=== PATIENT | male | born 1960 | race African-American/Black ===

== ENCOUNTER 2020-08-31 10:19 | Observation (INO) | payer MEDICARE, MEDICAID, OTHER ==
[~2020-08-31] VITALS: Ht 157.5 cm; Wt 48.1 kg
[2020-08-31] MEDS ORDERED: DICLOFENAC SODI75 MG PO (10:53)
[2020-08-31] MEDS ORDERED: TOPROL XL25 M1 PO (10:54)
[2020-08-31] MEDS ORDERED: NORVASC10 M1 PO (10:54)
[2020-08-31] MEDS ORDERED: LAMOTRIGINE150 MG PO (10:55)
[2020-08-31 11:02] LABS: URINE BILIRUBIN - DIPSTICK NEGATIVE (NEGATIVE); URINE BLOOD DIPSTICK TRACE-INTACT (NEGATIVE); URINE COLOR YELLOW; URINE GLUCOSE - DIPSTICK NEGATIVE (NEGATIVE); URINE KETONE NEGATIVE (NEGATIVE); URINE LEUK ESTERASE NEGATIVE (NEGATIVE); URINE PROTEIN - DIPSTICK NEGATIVE (NEG-TRACE); URINE UROBILINOGEN - DIPSTICK 0.2 E.U./dL (0.2)
[2020-08-31 11:17] LABS: URINE NITRITE - DIPSTICK POSITIVE (Negative)
[2020-08-31 11:29] LABS: URINE BACTERIA MODERATE hpf; URINE RBC 0-2 RBC/hpf (0-5); URINE SQUAMOUS EPITHELIAL CELL FEW EPI/hpf (0-FEW)
[2020-08-31 12:13] LABS: HEMATOCRIT 42.8 % (39.0-50.0); MEAN CELL VOLUME 90.7 fL CALC (80.0-100.0); MEAN CORPUSCULAR HGB 29.7 pG CALC (26.0-32.0); MEAN CORPUSCULAR HGB CONC 32.7 g/dL CAL (32.0-36.0); NEUT# 1.26 thou/uL (1.82-7.42); RED BLOOD COUNT 4.72 mill/uL (4.70-6.10); RED CELL DISTRI WIDTH 11.9 % (11.5-15.5)
[2020-08-31 12:33] LABS: ALBUMIN 4.8 g/dL (3.2-5.0); ALKALINE PHOSPHATASE 91 u/l (38-126); ANION GAP 16 (6-22 (CALC)); BILIRUBIN, TOTAL 0.6 mg/dL (0.0-1.4); BUN 12 mg/dL (9-20); BUN/CREATININE RATIO 13 (12-20 (CALC)); CARBON DIOXIDE 28 mmol/l (22-30); CHLORIDE 104 mmol/l (95-108); CREATININE 0.9 mg/dL (0.7-1.3); GFR > 60 ML/MIN (>=60 (CALC)); GFR FOR AFR.AMER. > 60 ML/MIN (>=60 (CALC)); LIPASE 58 u/l (23-300); MAGNESIUM 2.1 mg/dL (1.6-2.3); POTASSIUM 4.2 mmol/l (3.5-5.1); SGOT/AST 22 u/l (17-59); SODIUM 144 mmol/l (137-146); TOTAL PROTEIN 9.2 g/dL (6.3-8.2)
[2020-09-01 04:33] LABS: HEMATOCRIT 42.8 % (39.0-50.0); HEMOGLOBIN 13.8 g/dl (14.0-18.0); MEAN CELL VOLUME 90.7 fL CALC (80.0-100.0); MEAN CORPUSCULAR HGB 29.2 pG CALC (26.0-32.0); MEAN CORPUSCULAR HGB CONC 32.2 g/dL CAL (32.0-36.0); NEUT# 1.52 thou/uL (1.82-7.42); RED BLOOD COUNT 4.72 mill/uL (4.70-6.10); RED CELL DISTRI WIDTH 11.9 % (11.5-15.5)
[2020-09-01 04:43] LABS: ALBUMIN 4.5 g/dL (3.2-5.0); ALKALINE PHOSPHATASE 77 u/l (38-126); ANION GAP 12 (6-22 (CALC)); BILIRUBIN, TOTAL 0.6 mg/dL (0.0-1.4); BUN 15 mg/dL (9-20); BUN/CREATININE RATIO 14 (12-20 (CALC)); C-REACTIVE PROTEIN < 0.5 mg/dL (0-0.9); CARBON DIOXIDE 30 mmol/l (22-30); CHLORIDE 105 mmol/l (95-108); GFR > 60 ML/MIN (>=60 (CALC)); GFR FOR AFR.AMER. > 60 ML/MIN (>=60 (CALC)); POTASSIUM 4.6 mmol/l (3.5-5.1); SGOT/AST 24 u/l (17-59); SODIUM 142 mmol/l (137-146); TOTAL PROTEIN 8.4 g/dL (6.3-8.2)
[2020-09-01 07:39] VITALS: BP 168/83
[2020-09-01 12:15] VITALS: BP 173/96
[2020-09-01 12:40] VITALS: BP 160/92
[2020-09-01 14:58] VITALS: BP 156/92
[2020-09-01 19:35] VITALS: BP 176/91
[2020-09-02 00:10] VITALS: BP 158/89
[2020-09-02 04:05] VITALS: BP 173/90
[2020-09-02 08:00] VITALS: BP 166/94
[2020-09-02 10:15] VITALS: BP 108/55
[2020-09-02 14:35] VITALS: BP 140/74
[2020-09-02 20:00] VITALS: BP 144/86
[2020-09-03] VITALS: BP 110/65
[2020-09-03 04:00] VITALS: BP 145/87
[2020-09-03 04:40] LABS: HEMATOCRIT 42.8 % (39.0-50.0); MEAN CELL VOLUME 89.7 fL CALC (80.0-100.0); MEAN CORPUSCULAR HGB 29.4 pG CALC (26.0-32.0); MEAN CORPUSCULAR HGB CONC 32.7 g/dL CAL (32.0-36.0); RED BLOOD COUNT 4.77 mill/uL (4.70-6.10); RED CELL DISTRI WIDTH 12.1 % (11.5-15.5)
[2020-09-03 05:02] LABS: ALBUMIN 4.6 g/dL (3.2-5.0); ALKALINE PHOSPHATASE 97 u/l (38-126); ANION GAP 15 (6-22 (CALC)); BILIRUBIN, TOTAL 0.5 mg/dL (0.0-1.4); BUN 25 mg/dL (9-20); BUN/CREATININE RATIO 23 (12-20 (CALC)); CARBON DIOXIDE 28 mmol/l (22-30); CHLORIDE 102 mmol/l (95-108); CREATININE 1.1 mg/dL (0.7-1.3); GFR > 60 ML/MIN (>=60 (CALC)); GFR FOR AFR.AMER. > 60 ML/MIN (>=60 (CALC)); POTASSIUM 4.6 mmol/l (3.5-5.1); SGOT/AST 35 u/l (17-59); SODIUM 140 mmol/l (137-146); TOTAL PROTEIN 8.7 g/dL (6.3-8.2)
[2020-09-03 08:31] VITALS: BP 151/77
[2020-09-03 11:39] VITALS: BP 128/76
[2020-09-03 19:34] VITALS: BP 143/80
[2020-09-04] VITALS: BP 155/81
[2020-09-04 04:42] VITALS: BP 153/88
[2020-09-04 05:51] LABS: HEMOGLOBIN 14.3 g/dl (14.0-18.0); MEAN CELL VOLUME 90.2 fL CALC (80.0-100.0); MEAN CORPUSCULAR HGB 29.3 pG CALC (26.0-32.0); MEAN CORPUSCULAR HGB CONC 32.5 g/dL CAL (32.0-36.0); RED BLOOD COUNT 4.88 mill/uL (4.70-6.10)
[2020-09-04 06:09] LABS: ALBUMIN 4.6 g/dL (3.2-5.0); ALKALINE PHOSPHATASE 98 u/l (38-126); ANION GAP 15 (6-22 (CALC)); BILIRUBIN, TOTAL 0.5 mg/dL (0.0-1.4); BUN 19 mg/dL (9-20); BUN/CREATININE RATIO 24 (12-20 (CALC)); CARBON DIOXIDE 26 mmol/l (22-30); CHLORIDE 101 mmol/l (95-108); CREATININE 0.8 mg/dL (0.7-1.3); GFR > 60 ML/MIN (>=60 (CALC)); GFR FOR AFR.AMER. > 60 ML/MIN (>=60 (CALC)); POTASSIUM 4.6 mmol/l (3.5-5.1); SGOT/AST 32 u/l (17-59); SODIUM 137 mmol/l (137-146); TOTAL PROTEIN 8.7 g/dL (6.3-8.2)
[2020-09-04 07:37] VITALS: BP 157/89
[2020-09-04 10:43] VITALS: BP 168/84
[2020-09-04] MEDS ORDERED: AMOX/K CLAV875 M1 PO (13:11)
== END 2020-09-04 14:30 | disposition home or self-care (01) ==
LOC: ED 10:19 → ED-I 14:38 → ED 16:22 → ICU 16:23 → MS2 16:23 → ICU 17:07 → MS2 09-01 12:28
PROVIDERS: Emergency Medicine; Nurse Practitioner; Nurse Practitioner Family; ADMIT Internal Medicine; ATTEND Internal Medicine
DX: N39.0 Urinary tract infection, site not specified (principal); J18.9 Pneumonia, unspecified organism; G93.40 Encephalopathy, unspecified; F09 Unspecified mental disorder due to known physiological condition; I10 Essential (primary) hypertension; G40.909 Epilepsy, unspecified, not intractable, without status epilepticus; R62.7 Adult failure to thrive; M79.601 Pain in right arm; B96.1 Klebsiella pneumoniae [K. pneumoniae] as the cause of diseases classified elsewhere; W19.XXXA Unspecified fall, initial encounter; Z68.1 Body mass index [BMI] 19.9 or less, adult; Z91.81 History of falling; Z63.4 Disappearance and death of family member; Z20.822 Contact with and (suspected) exposure to COVID-19
CPT/HCPCS: G0378; J1650; J2060; Q9967

== ENCOUNTER 2020-12-02 12:16 | Inpatient (IN) | payer MEDICARE, MEDICAID ==
[~2020-12-02] VITALS: Ht 157.5 cm; Wt 48.0 kg
[~2020-12-02 12:16] MED LIST: AMOX/K CLAV875 M1 PO; DICLOFENAC SODI75 MG PO; LAMOTRIGINE150 MG PO; NORVASC10 M1 PO; TOPROL XL25 M1 PO
--- NOTE | 2020-12-02 12:16 | NUR ---
PT TO ROOM VIA EMS STRETCHER. EYES OPENING TO PAINFUL STIMULI. MD NOTIFIED OF PT STATUS AND IS AT BEDSIDE.
[2020-12-02 12:44] LABS: IMMATURE GRANULOCYTES 1.5 % (0.0-5.0); MEAN CORPUSCULAR HGB 29.2 pG CALC (26.0-32.0); MEAN CORPUSCULAR HGB CONC 29.4 g/dL CAL (32.0-36.0); NEUT# 3.28 thou/uL (1.82-7.42); RED BLOOD COUNT 5.13 mill/uL (4.70-6.10); RED CELL DISTRI WIDTH 12.4 % (11.5-15.5)
[2020-12-02 12:49] LABS: HEMATOCRIT 51.1 % (39.0-50.0); MEAN CELL VOLUME 99.6 fL CALC (80.0-100.0)
[2020-12-02 13:04] LABS: ALBUMIN 5.1 g/dL (3.2-5.0); ALKALINE PHOSPHATASE 78 u/l (38-126); BILIRUBIN, TOTAL 0.4 mg/dL (0.0-1.4); BUN 15 mg/dL (9-20); BUN/CREATININE RATIO 10 (12-20 (CALC)); CHLORIDE 104 mmol/l (95-108); CREATININE 1.5 mg/dL (0.7-1.3); GFR 48 ML/MIN (>=60 (CALC)); GFR FOR AFR.AMER. 58 ML/MIN (>=60 (CALC)); POTASSIUM 4.4 mmol/l (3.5-5.1); SGOT/AST 40 u/l (17-59); TOTAL PROTEIN 10.1 g/dL (6.3-8.2)
[2020-12-02 13:09] LABS: ANION GAP 41 (6-22 (CALC)); SODIUM 147 mmol/l (137-146)
[2020-12-02 13:10] LABS: CARBON DIOXIDE 6 mmol/l (22-30)
[2020-12-02 13:15] LABS: MYOGLOBIN 50 ng/mL (0 - 121)
--- NOTE | 2020-12-02 13:44 | NUR ---
PT ALET AND ORIENTED TO PT NORMAL, PTS BROTHER AT BEDSIDE STATES THIS IS PTS NOMRM
[2020-12-02 13:50] LABS: URINE BILIRUBIN - DIPSTICK NEGATIVE (NEGATIVE); URINE BLOOD DIPSTICK SMALL (NEGATIVE); URINE COLOR YELLOW; URINE GLUCOSE - DIPSTICK NEGATIVE (NEGATIVE); URINE KETONE NEGATIVE (NEGATIVE); URINE LEUK ESTERASE NEGATIVE (NEGATIVE); URINE PH 5.5 (4.5-8.0); URINE PROTEIN - DIPSTICK 100 mg/dL (NEG-TRACE); URINE SPECIFIC GRAVITY >=1.030; URINE UROBILINOGEN - DIPSTICK 0.2 E.U./dL (0.2)
[2020-12-02 13:52] LABS: URINE NITRITE - DIPSTICK NEGATIVE (Negative)
[2020-12-02 13:53] LABS: URINE WBC 0-2 WBC/hpf (0-5)
--- NOTE | 2020-12-02 15:08 | NUR ---
PT AWAITING NS TO FINISH TO REDRAW LACTIC AND CMP
[2020-12-02 17:15] LABS: ANION GAP 18 (6-22 (CALC)); BUN 15 mg/dL (9-20); BUN/CREATININE RATIO 16 (12-20 (CALC)); CHLORIDE 109 mmol/l (95-108); GFR > 60 ML/MIN (>=60 (CALC)); GFR FOR AFR.AMER. > 60 ML/MIN (>=60 (CALC)); POTASSIUM 3.8 mmol/l (3.5-5.1); SODIUM 141 mmol/l (137-146)
[2020-12-02 17:16] LABS: CARBON DIOXIDE 18 mmol/l (22-30)
--- NOTE | 2020-12-02 19:22 | NUR ---
TELEBOX 6196 IN USE. PATIENT FOR ADMIT TO ROOM 261
--- NOTE | 2020-12-02 19:26 | NUR ---
POATIENT AWEAKE AND ALERT. MOVES ALL EXTREMITIES. NO DISTRESS. NO SEIZURE LIKE ACTIVITY AT THIS TIME.
--- NOTE | 2020-12-02 19:30 | NUR ---
ATTEMPTED TO GIVE REPORT TO BEBO CASSIDY. NURSE WILL CALL BACK FOR REPORT.
--- NOTE | 2020-12-02 20:22 | NUR ---
NURSE CASSIDY NOT AVAILABLE FOR REPORT AT THIS TIME.
--- NOTE | 2020-12-02 20:30 | NUR ---
REPORT GIVEN TO ANGE. PT BEING TRANSPORTED TO FLOOR BY THIS RN. NO DISTRESS. NO SEIZUE LIKE ACTIVITY. SEIZURE PRECAUTIONS IN USE.
[2020-12-02 20:36] VITALS: BP 150/82
--- NOTE | 2020-12-02 20:36 | NUR ---
PT ARRIVED TO MED SURG UNIT VIA STRETCHER ACCOMPANIED BY ED NURSE. HE APPEARS TO BE STABLE AT THIS TIME. PT SELF TRANSFERRED TO BED FROM STRETCHER WITH STANDBY ASSISTANCE. OXYGEN NC ON @2L. EXCEPTIONAL CHILDREN TEACHER ASSISTANT IN WITH PT OBTAINING V/S AND ORIENTING THE PT TO THE ROOM.
--- NOTE | 2020-12-02 21:15 | NUR ---
PT YELLING OUT "HEY" UPON ENTERING THE ROOM PT POINTS TO HIS GROIN AREA AND TURNS OVER. BEDPAN PLACED AND HE URINATED 150CC OF DARK YELLOW URINE AT THIS TIME. PT APPEARS TO BE CONTINENT, BUT IS NOT USING THE URINAL WHEN ENCOURAGED.
--- NOTE | 2020-12-02 22:25 | NUR ---
PT CALLED, HE EXPRESSED NEED TO AMBULATE TO RESTROOM. 2X ASSISTANCE HE WALKED TO RESTROOM. BSC PLACED NEXT TO BED FOR SAFETY. PT HAS URINATED IN BEDPAN ALSO PRIOR TO THIS. THIS TIME HE WANTED TO WALK TO RESTROOM.
--- NOTE | 2020-12-02 22:52 | NUR ---
PT MEDICATED FOR HEADACHE. NO DIFFICULTIES SWOLLOWING PILLS. WATER AT BEDSIDE, BED ALARM ON AND TV IS ON FOR PT COMFORT.
[2020-12-03] VITALS (8 sets, daily range): BP systolic 125–170; BP diastolic 73–89
--- NOTE | 2020-12-03 00:53 | NUR ---
PT IS SITTING IN HIGH FOWLERS POSITION NON-DISTRESSED IN APPEARANCE, HIS EYES ARE OPEN AND HE APPEARS TO BE WATCHING TV. SEIZURE PRECAUTIONS REMAIN IN PLACE. RESP EVEN NON-LABORED.
--- NOTE | 2020-12-03 02:25 | NUR ---
ED CALLED TO REPORT PT IS OFF TELEMETRY. LEAD PADS REPLACED, CREDIT SUPPORT COUNSELOR COMING IN AT THIS TIME.
--- NOTE | 2020-12-03 04:17 | NUR ---
PT CALLED TO USE RESTROOM, ASSISTED TO BSC AND BACK TO THE BED. CALL LIGHT AT SIDE AND BED ALARM PLACED BACK ON. 150CC OF DARK YELLOW CLOUDY URINE OUTPUT.
--- NOTE | 2020-12-03 20:08 | NUR ---
pt alert and oriented x3 denied pain out of bed with assistance, to bedside commode lung clear no respitory difficulty vital signs stables no seizure activity noted aruna the day IV site intact and patent resting in bed with no complaints.
--- NOTE | 2020-12-03 20:49 | NUR ---
LIGHT RAIL OPERATOR NOTIFIED THAT THE PT DID NOT RECEIVE SEIZURE MEDICATION LAMOTRIGINE 0900 DOSE AND THAT THE MEDICATION IS ORDERED, BUT NOT AVAILABLE HERE ON MED SURG. HE CALLED PHARMACY WHO REPORTS THAT THE MEDICATION IS NOT IN HOSPITAL AND HAS TO BE BROUGHT FROM HOME. FOOD BEVERAGE ATTENDANT NOTIFIED FAMILY, THEY STATE THEY WILL BRING MEDICATION FOR TONIGHTS DOSE, BUT THAT HE SHOULD HAVE BEEN NOTIFIED EARLIER THIS DAY. I APOLOGIZED FOR THE DEALY AND INCONVENIENCE. HE WAS VERY POLITE, BUT DID WANT A NOTE PLACED THAT HE SHOULD NOT HAVE BEEN NOTIFIED THIS LATE.
--- NOTE | 2020-12-03 21:26 | NUR ---
PT MEDICATED ORDERS PROVIDE WITH HOME MEDICATION INSTRUCTED BY PHYSICIAN. HE WAS NOTIFIED THAT THE PT HAD NOT RECEIVED ANY OF THIS MEDICATION ORDERED AND THAT THE PHARMACY WAS CALLED, REPORTED THAT IT IS NON-FORMULARY AND THE FAMILY WOULD HAVE TO BE NOTIFIED TO PROVIDE THIS MEDICATION. I CONTACTED THE FAMILY WHO REPORTED BEING UP TO VISIT THE PATIENT EARLIER THIS DAY AND THAT HE WAS NOT TOLD OF THIS. I ASKED IF THERE WAS ANY WAY HE COULD PROVIDE THIS MEDICATION TONIGHT AND HE AGREED. MEDICATION RECEIVED BY ASSISTANT MEDIA PLANNER AT THIS TIME MADE AVAILABLE BY [employer]ISSION COMMANDER. PHYSICIAN ORDERED THAT THIS MEDICATION BE ADMINISTERED WHEN RECEIVED THE ORDER IN [facility] PROVIDES FOR TONIGHTS DOSE. NO DOSE CHANGES AT THIS TIME. HE WAS NOTIFIED THAT THE AM DOSE WAS NOT GIVEN. PT APPEARS STABLE AT THIS TIME.
--- NOTE | 2020-12-03 22:00 | NUR ---
IVF DID NOT SCAN, IVF CONFIRMED WITH BEBO ARROYO FOR DOSING ORDERED.
--- NOTE | 2020-12-04 01:43 | NUR ---
PT SLEEPNG WITH HEAD COVERED. LIGHT TURNED LOW FOR THE PT COMFORT.
--- NOTE | 2020-12-04 03:00 | NUR ---
PT APPEARS TO BE SLEEPING. HEAD IS COVERED WITH BLANKETS AND PT CURLED UP IN THE BED. NO S/O DISTRESS OBSERVED. CALL LIGHT IS W/IN REACH.
[2020-12-04 03:33] VITALS: BP 124/79
--- NOTE | 2020-12-04 04:08 | NUR ---
ATTEMPT TO CHANGE EMS SITE, UNABLE TO ACCESS NEW SITE AFTER TWO ATTEMPTS. PT UNCOOPERATIVE AND JERKING AWAY.
[2020-12-04 06:05] LABS: HEMOGLOBIN 14.1 g/dl (14.0-18.0); MEAN CORPUSCULAR HGB 29.9 pG CALC (26.0-32.0); MEAN CORPUSCULAR HGB CONC 33.4 g/dL CAL (32.0-36.0); NEUT# 5.7 thou/uL (1.82-7.42); RED BLOOD COUNT 4.71 mill/uL (4.70-6.10); RED CELL DISTRI WIDTH 12.4 % (11.5-15.5)
[2020-12-04 06:08] LABS: HEMATOCRIT 42.2 % (39.0-50.0); MEAN CELL VOLUME 89.6 fL CALC (80.0-100.0)
[2020-12-04 06:26] LABS: ANION GAP 16 (6-22 (CALC)); BUN 20 mg/dL (9-20); BUN/CREATININE RATIO 23 (12-20 (CALC)); CARBON DIOXIDE 21 mmol/l (22-30); CHLORIDE 104 mmol/l (95-108); CREATININE 0.9 mg/dL (0.7-1.3); GFR > 60 ML/MIN (>=60 (CALC)); GFR FOR AFR.AMER. > 60 ML/MIN (>=60 (CALC)); POTASSIUM 3.9 mmol/l (3.5-5.1); SODIUM 136 mmol/l (137-146)
[2020-12-04 07:43] VITALS: BP 123/78
--- NOTE | 2020-12-04 07:43 | NUR ---
PT SITTING IN BED. A&O. PT PLEASANT AND COOPERATIVE WITH CARE AND NURSING ASSESSMENT. CLEAR BREATH SOUNDS HEARD UPON AUSCULTATION. ACTIVE BOWEL SOUNDS X4 QUADRANTS. ANIMAL DOCTOR IN PLACE, CURRENTLY SR 70'S. IV HEALTHY AND PATENT. BED RAILS PADED FOR SEIZURE PRECAUTIONS. BED ALARM IN PLACE FOR SAFETY. CALL LIGHT WITHIN REACH. ASSESSMENT COMPLETED. DISCUSSED POC.
--- NOTE | 2020-12-04 10:41 | NUR ---
DR RIVAS AND Ayush OSRTO APRN AT BEDSIDE DISCUSSING POC
[2020-12-04 12:00] VITALS: BP 136/82
--- NOTE | 2020-12-04 12:23 | NUR ---
PT SITTING IN BED, EATING LUNCH. NO DISTRESS NOTED. CALL LIGHT WITHIN REACH.
--- NOTE | 2020-12-04 15:52 | NUR ---
IV INTACT UPON REMOVAL. D/C INSTRUCTIONS TO BE GIVEN TO BROTHER.
--- NOTE | 2020-12-04 16:00 | NUR ---
Discharge instructions given. Patient verbalizes understanding of same. Discharged in stable condition via wheelchair to home with staff. All belongings sent with pt.
== END 2020-12-04 16:04 | disposition home or self-care (01) | DRG 641 ==
LOC: ED 12:16 → ED-I 12:37 → ED 17:23 → MS2 17:24
PROVIDERS: Emergency Medicine; ADMIT Internal Medicine; ATTEND Internal Medicine
DX: E87.2 Acidosis (principal); G40.909 Epilepsy, unspecified, not intractable, without status epilepticus; F09 Unspecified mental disorder due to known physiological condition; I10 Essential (primary) hypertension; Z20.822 Contact with and (suspected) exposure to COVID-19

== ENCOUNTER 2021-01-20 20:18 | Emergency (ER) | payer MEDICARE, MEDICAID ==
[~2021-01-20] VITALS: Ht 157.5 cm; Wt 59.0 kg
[2021-01-20 21:06] LABS: HEMATOCRIT 40.5 % (39.0-50.0); HEMOGLOBIN 12.9 g/dl (14.0-18.0); IMMATURE GRANULOCYTES 0.2 % (0.0-5.0); MEAN CELL VOLUME 94.2 fL CALC (80.0-100.0); MEAN CORPUSCULAR HGB CONC 31.9 g/dL CAL (32.0-36.0); NEUT# 5.57 thou/uL (1.82-7.42); RED BLOOD COUNT 4.3 mill/uL (4.70-6.10); RED CELL DISTRI WIDTH 12.5 % (11.5-15.5)
[2021-01-20 21:18] LABS: ALBUMIN 4.7 g/dL (3.2-5.0); ALKALINE PHOSPHATASE 99 u/l (38-126); ANION GAP 30 (6-22 (CALC)); BILIRUBIN, TOTAL 0.4 mg/dL (0.0-1.4); BUN 19 mg/dL (9-20); BUN/CREATININE RATIO 14 (12-20 (CALC)); CHLORIDE 103 mmol/l (95-108); CREATININE 1.4 mg/dL (0.7-1.3); GFR 52 ML/MIN (>=60 (CALC)); GFR FOR AFR.AMER. > 60 ML/MIN (>=60 (CALC)); POTASSIUM 4.1 mmol/l (3.5-5.1); SGOT/AST 32 u/l (17-59); SODIUM 142 mmol/l (137-146); TOTAL PROTEIN 8.9 g/dL (6.3-8.2)
[2021-01-20 21:27] LABS: CARBON DIOXIDE 13 mmol/l (22-30)
[2021-01-20 21:29] LABS: MYOGLOBIN 58 ng/mL (0 - 121)
[2021-01-20 21:37] LABS: URINE BILIRUBIN - DIPSTICK NEGATIVE (NEGATIVE); URINE BLOOD DIPSTICK SMALL (NEGATIVE); URINE COLOR YELLOW; URINE GLUCOSE - DIPSTICK NEGATIVE (NEGATIVE); URINE KETONE NEGATIVE (NEGATIVE); URINE LEUK ESTERASE NEGATIVE (NEGATIVE); URINE NITRITE - DIPSTICK NEGATIVE (Negative); URINE PH 5.5 (4.5-8.0); URINE PROTEIN - DIPSTICK 30 mg/dL (NEG-TRACE); URINE SPECIFIC GRAVITY >=1.030; URINE UROBILINOGEN - DIPSTICK 0.2 E.U./dL (0.2)
[2021-01-20 21:45] LABS: URINE RBC 0-2 RBC/hpf (0-5); URINE SQUAMOUS EPITHELIAL CELL FEW EPI/hpf (0-FEW)
[2021-01-21 01:04] LABS: BUN 17 mg/dL (9-20); BUN/CREATININE RATIO 17 (12-20 (CALC)); CHLORIDE 106 mmol/l (95-108); GFR > 60 ML/MIN (>=60 (CALC)); GFR FOR AFR.AMER. > 60 ML/MIN (>=60 (CALC)); POTASSIUM 4.6 mmol/l (3.5-5.1); SODIUM 140 mmol/l (137-146)
[2021-01-21 01:06] LABS: ANION GAP 17 (6-22 (CALC)); CARBON DIOXIDE 22 mmol/l (22-30)
[2021-01-21] MEDS ORDERED: TAM75CAP PO (01:17)
[2021-01-21 04:44] VITALS: BP 159/82
== END 2021-01-21 01:30 | disposition home or self-care (01) ==
LOC: ED 20:18
PROVIDERS: Emergency Medicine
DX: G40.909 Epilepsy, unspecified, not intractable, without status epilepticus (principal); U07.1 COVID-19; J10.1 Influenza due to other identified influenza virus with other respiratory manifestations; I10 Essential (primary) hypertension; E87.2 Acidosis; G93.9 Disorder of brain, unspecified

== ENCOUNTER 2021-07-08 15:58 | Emergency (ER) | payer OTHER, MEDICARE, MEDICAID ==
[~2021-07-08] VITALS: Ht 157.5 cm; Wt 68.0 kg
[~2021-07-08 15:58] MED LIST changes: +TAM75CAP PO
[2021-07-08 19:11] VITALS: BP 168/70
== END 2021-07-08 19:13 | disposition home or self-care (01) | DRG 552 ==
LOC: ED 15:58
DX: M54.50 Low back pain, unspecified (principal); M25.511 Pain in right shoulder; I10 Essential (primary) hypertension; G40.909 Epilepsy, unspecified, not intractable, without status epilepticus; V49.50XA Passenger injured in collision with unspecified motor vehicles in traffic accident, initial encounter

== ENCOUNTER 2021-08-07 19:19 | Emergency (ER) | payer MEDICARE, MEDICAID ==
[~2021-08-07] VITALS: Ht 157.5 cm; Wt 50.0 kg
[2021-08-07 19:45] VITALS: BP 149/90
[2021-08-07 20:11] LABS: URINE BILIRUBIN - DIPSTICK NEGATIVE (NEGATIVE); URINE BLOOD DIPSTICK MODERATE (NEGATIVE); URINE COLOR YELLOW; URINE GLUCOSE - DIPSTICK NEGATIVE (NEGATIVE); URINE KETONE NEGATIVE (NEGATIVE); URINE LEUK ESTERASE NEGATIVE (NEGATIVE); URINE PH 5.5 (4.5-8.0); URINE PROTEIN - DIPSTICK 100 mg/dL (NEG-TRACE); URINE SPECIFIC GRAVITY >=1.030; URINE UROBILINOGEN - DIPSTICK 0.2 E.U./dL (0.2)
[2021-08-07 20:16] LABS: IMMATURE GRANULOCYTES 0.3 % (0.0-5.0); MEAN CELL VOLUME 95.3 fL CALC (80.0-100.0); MEAN CORPUSCULAR HGB 30.8 pG CALC (26.0-32.0); MEAN CORPUSCULAR HGB CONC 32.3 g/dL CAL (32.0-36.0); NEUT# 4.08 thou/uL (1.82-7.42); RED BLOOD COUNT 4.9 mill/uL (4.70-6.10); RED CELL DISTRI WIDTH 12.5 % (11.5-15.5)
[2021-08-07 20:21] LABS: HEMATOCRIT 46.7 % (39.0-50.0); HEMOGLOBIN 15.1 g/dl (14.0-18.0)
[2021-08-07 20:22] LABS: URINE NITRITE - DIPSTICK NEGATIVE (Negative)
[2021-08-07 20:24] LABS: URINE WBC 0-2 WBC/hpf (0-5)
[2021-08-07 20:29] LABS: ALBUMIN 4.5 g/dL (3.2-5.0); ALKALINE PHOSPHATASE 79 u/l (38-126); BILIRUBIN, TOTAL 0.4 mg/dL (0.0-1.4); BUN 15 mg/dL (8-23); BUN/CREATININE RATIO 14 (12-20 (CALC)); CHLORIDE 109 mmol/l (95-108); CREATININE 1.1 mg/dL (0.7-1.3); ETHYL ALCOHOL 0 mg/dl (0-30); GFR > 60 ML/MIN (>=60 (CALC)); GFR FOR AFR.AMER. > 60 ML/MIN (>=60 (CALC)); LIPASE 74 u/l (23-300); MAGNESIUM 2.2 mg/dL (1.6-2.3); POTASSIUM 3.9 mmol/l (3.5-5.1); SGOT/AST 30 u/l (19-48); SODIUM 146 mmol/l (137-146); TOTAL PROTEIN 8.2 g/dL (6.3-8.2)
[2021-08-07 20:32] LABS: ACT PARTIAL THROMBO TIME 25.2 SECONDS (20.0-32.5); PROTHROMBIN TIME 10.8 SECONDS (9.0-12.5)
[2021-08-07 20:35] LABS: ANION GAP 30 (6-22 (CALC)); CARBON DIOXIDE 11 mmol/l (22-30)
[2021-08-07 21:31] VITALS: BP 175/94
== END 2021-08-07 22:08 | disposition home or self-care (01) ==
LOC: ED 19:19
DX: G40.409 Other generalized epilepsy and epileptic syndromes, not intractable, without status epilepticus (principal); F09 Unspecified mental disorder due to known physiological condition; I10 Essential (primary) hypertension; Z20.822 Contact with and (suspected) exposure to COVID-19
CPT/HCPCS: J1953; J2060